=== PATIENT | female | born 1940 | race Caucasian/White ===

== ENCOUNTER 2017-09-07 08:20 | Outpatient (CLI) | payer MEDICARE | END 2017-09-07 08:21 | disposition home or self-care (01) | LOC: BICMRI 08:20 | PROVIDERS: ATTEND Orthopaedic Surgery Hand Surgery | DX: M54.12 Radiculopathy, cervical region (principal); G95.89 Other specified diseases of spinal cord; M43.12 Spondylolisthesis, cervical region; M43.8X2 Other specified deforming dorsopathies, cervical region; Z87.39 Personal history of other diseases of the musculoskeletal system and connective tissue | CPT/HCPCS: 36415; 72141; 83520; 85025; 85652; 86038; 86200; 86225; 86618 ==

== ENCOUNTER 2018-04-30 08:50 | Outpatient (CLI) | payer MEDICARE | END 2018-04-30 08:51 | disposition home or self-care (01) | LOC: BICMAMMO 08:50 | PROVIDERS: ATTEND Nurse Practitioner Family | DX: Z12.31 Encounter for screening mammogram for malignant neoplasm of breast (principal) | CPT/HCPCS: 77063; 77067 ==

== ENCOUNTER 2018-06-28 09:52 | Outpatient (CLI) | payer MEDICARE ==
--- NOTE | 2018-06-28 11:31 | RAD ---
FOUR VIEWS LEFT KNEE: History: Left knee pain for weeks. FINDINGS: Four views of the left knee shows no evidence of acute fracture or dislocation. Moderate tricompartme ntal joint space narrowing and osteophyte formation is seen, greatest in the medial femoral tibial co mpartment. No knee effusion is seen. IMPRESSION: Moderate left knee osteoarthritis without acute osseous abnormality. POS: [facility]
== END 2018-06-28 09:53 | disposition home or self-care (01) ==
LOC: SCSRAD 09:52
PROVIDERS: ATTEND Nurse Practitioner Family
DX: M25.562 Pain in left knee (principal); M17.12 Unilateral primary osteoarthritis, left knee

== ENCOUNTER 2018-07-16 10:57 | Outpatient (CLI) | payer MEDICARE ==
--- NOTE | 2018-07-16 14:24 | RAD ---
LUMBAR SPINE TWO VIEWS: HISTORY: Low back pain with left leg radiculopathy. FINDINGS: There is very severe leftward convex scoliotic curvature at the thoracolumbar junction, so that after numbering, cannot competently performed. No vertebral compression is apparent, with the curvature a nd overall appearance on the frontal view stable, compared to the abdomen radiograph from 01/26/2015. Osteophytosis of the lower facets. Calcification over the arterial structures. IMPRESSION: 1. Severe leftward convex scoliotic curvature of the thoracolumbar junction and other findings are s table, compared to the 2015 examination. Degenerative changes are present. No acute osseous abnorma lities reliably demonstrated. 2. Atherosclerosis. POS: [facility]
== END 2018-07-16 10:58 | disposition home or self-care (01) ==
LOC: SCSRAD 10:57
PROVIDERS: ATTEND Nurse Practitioner Family
DX: M51.16 Intervertebral disc disorders with radiculopathy, lumbar region (principal); M41.9 Scoliosis, unspecified; M43.9 Deforming dorsopathy, unspecified; I70.0 Atherosclerosis of aorta
CPT/HCPCS: 72100

== ENCOUNTER 2019-05-01 10:07 | Outpatient (CLI) | payer MEDICARE ==
--- NOTE | 2019-05-01 11:20 | MMO ---
Bilateral MAMMO Bilat Screen [facility]. CLINICAL HISTORY: Patient is 78 years old and is seen for screening. The patient has no family history of breast cancer. The patient has no personal history of cancer. VIEWS: The views performed were: bilateral craniocaudal with tomosynthesis and bilateral mediolateral oblique with tomosynthesis. FILMS COMPARED: The present examination has been compared to prior imaging studies performed at [facility] on 03/22/2016, 04/28/2017 and 04/30/2018. This study has been interpreted with the assistance of computer-aided detection. MAMMOGRAM FINDINGS: The breasts are heterogeneously dense, which could obscure a lesion on mammography. There are no suspicious masses, calcifications or areas of architectural distortion. There are benign appearing calcifications in both breasts. There are no suspicious masses, suspicious calcifications, or new areas of architectural distortion. IMPRESSION: THERE IS NO MAMMOGRAPHIC EVIDENCE OF MALIGNANCY. A ROUTINE FOLLOW-UP MAMMOGRAM IN 1 YEAR IS RECOMMENDED. THE RESULTS OF THIS EXAM WERE SENT TO THE PATIENT. ACR BI-RADS Category 2 - Benign finding MAMMOGRAPHY NOTE: 1. A negative mammogram report should not delay a biopsy if a dominant of clinically suspicious mass is present. 2. Approximately 10% to 15% of breast cancers are not detected by mammography. 3. Adenosis and dense breasts may obscure an underlying neoplasm. Reported by: ROSANNE DOYLE MD Electonically Signed: [id number]
== END 2019-05-01 10:08 | disposition home or self-care (01) ==
LOC: BICMAMMO 10:07
PROVIDERS: ATTEND Family Medicine
DX: Z12.31 Encounter for screening mammogram for malignant neoplasm of breast (principal)
CPT/HCPCS: 77063; 77067

== ENCOUNTER 2020-05-07 10:01 | Outpatient (CLI) | payer MEDICARE, OTHER ==
--- NOTE | 2020-05-07 10:34 | MMO ---
Bilateral MAMMO Bilat Screen [facility]. CLINICAL HISTORY: Patient is 79 years old and is seen for screening. The patient has no family history of breast cancer. The patient has no personal history of cancer. VIEWS: The views performed were: bilateral craniocaudal with tomosynthesis; bilateral mediolateral oblique with tomosynthesis; and bilateral exaggerated craniocaudal. FILMS COMPARED: The present examination has been compared to prior imaging studies performed at [facility] on 03/22/2016, 04/28/2017, 04/30/2018 and 05/01/2019. This study has been interpreted with the assistance of computer-aided detection. MAMMOGRAM FINDINGS: The breasts are heterogeneously dense, which could obscure a lesion on mammography. There are stable benign appearing calcifications seen in both breasts. There are also vascular calcifications. There are no suspicious masses, suspicious calcifications, or new areas of architectural distortion. IMPRESSION: THERE IS NO MAMMOGRAPHIC EVIDENCE OF MALIGNANCY. A ROUTINE FOLLOW-UP MAMMOGRAM IN 1 YEAR IS RECOMMENDED. THE RESULTS OF THIS EXAM WERE SENT TO THE PATIENT. ACR BI-RADS Category 2 - Benign finding MAMMOGRAPHY NOTE: 1. A negative mammogram report should not delay a biopsy if a dominant of clinically suspicious mass is present. 2. Approximately 10% to 15% of breast cancers are not detected by mammography. 3. Adenosis and dense breasts may obscure an underlying neoplasm. Reported by: DWIGHT GARNICA MD Electonically Signed: [id number]
--- NOTE | 2020-05-07 14:21 | ULT ---
CAROTID DOPPLER: 05/07/20 Ultrasound and Doppler studies performed on the extracranial carotid arteries. INDICATIONS: Carotid bruit. Brennan scale imaging along with color Doppler and spectral analysis with velocity recordings obtained. Brennan scale images show echogenic plaque and intimal thickening bilaterally. Velocity recordings withi n normal range. Highest right ICA velocity recorded at 99 cm/s systolic. Highest left ICA velocity re corded at 96 cm/s systolic. Vertebral arteries are antegrade. IMPRESSION: 1. Moderate echogenic plaque seen with ultrasound bilaterally. 2. No evidence of hemodynamically significant stenosis by velocity recording. POS: [facility]
== END 2020-05-07 10:02 | disposition home or self-care (01) ==
LOC: BICMAMMO 10:01
PROVIDERS: ATTEND Physician Assistant Medical
DX: Z12.31 Encounter for screening mammogram for malignant neoplasm of breast (principal); R09.89 Other specified symptoms and signs involving the circulatory and respiratory systems; I65.23 Occlusion and stenosis of bilateral carotid arteries
CPT/HCPCS: 77063; 77067; 93880

== ENCOUNTER 2021-08-16 11:23 | Outpatient (CLI) | payer MEDICARE, OTHER | END 2021-08-16 11:24 | disposition home or self-care (01) | LOC: BICRAD 11:23 | PROVIDERS: ATTEND Family Medicine | DX: M54.42 Lumbago with sciatica, left side (principal); M41.55 Other secondary scoliosis, thoracolumbar region; M43.9 Deforming dorsopathy, unspecified; M47.816 Spondylosis without myelopathy or radiculopathy, lumbar region; K44.9 Diaphragmatic hernia without obstruction or gangrene | CPT/HCPCS: 72110 ==

== ENCOUNTER 2021-08-19 09:11 | Outpatient (CLI) | payer MEDICARE, OTHER | END 2021-08-19 09:12 | disposition home or self-care (01) | LOC: BICMAMMO 09:11 | PROVIDERS: ATTEND Family Medicine | DX: M81.8 Other osteoporosis without current pathological fracture (principal); M85.89 Other specified disorders of bone density and structure, multiple sites | CPT/HCPCS: 77080 ==

== ENCOUNTER 2021-11-05 12:05 | Outpatient (CLI) | payer MEDICARE, OTHER | END 2021-11-05 12:06 | disposition home or self-care (01) | LOC: BICRAD 12:05 | PROVIDERS: ATTEND Family Medicine | DX: M41.24 Other idiopathic scoliosis, thoracic region (principal); M47.814 Spondylosis without myelopathy or radiculopathy, thoracic region | CPT/HCPCS: 72072 ==

== ENCOUNTER 2022-10-04 09:52 | Outpatient (CLI) | payer MEDICARE | END 2022-10-04 09:53 | disposition home or self-care (01) | LOC: BICMAMMO 09:52 | PROVIDERS: ATTEND Family Medicine | DX: Z12.31 Encounter for screening mammogram for malignant neoplasm of breast (principal) | CPT/HCPCS: 77063; 77067 ==

== ENCOUNTER 2023-02-12 09:13 | Emergency (ER) | payer MEDICARE ==
[2023-02-12] MEDS ORDERED: Iopamidol-370 76% 500 ML MDV (1 ML CHARGE) ONE (10:07)
[2023-02-12 10:18] LABS: #Monocytes 0.5 thou/uL (0.11-0.59); #Neutrophils 4.7 thou/uL (1.40-6.50); %Basophils 0.5 % (0.0-1.0); %Eosinophils 0.5 % (0.0-10.0); %Lymphocytes 18.8 % (21.0-51.0); %Monocytes 8.2 % (0.0-10.0); %Neutrophils 71.7 % (42.0-75.0); Hematocrit 33.4 % (36.0-47.0); Hemoglobin 10.8 g/dL (12.0-16.0); Mean Corpuscular HGB CONC 32.3 g/dL (32.0-36.0); Mean Corpuscular Hemoglobin 28.6 pg (27.0-31.0); Mean Corpuscular Volume 88.4 fl (78.0-98.0); Mean Platelet Volume 9.1 fL (7.4-10.4); Platelet Count 295 10x3/uL (130-400); RBC Distribution Width 13.9 % (11.5-14.5); Red Blood Cell (RBC) Count 3.78 mill/uL (4.20-5.40); White Blood Cell (WBC) Count 6.6 10x3/uL (4.8-10.8)
[2023-02-12 10:41] LABS: ALT (SGPT) Less than 7 U/L (8-55); AST (SGOT) 15 U/L (5-34); Albumin 4.2 g/dL (3.4-4.8); Alkaline Phosphatase 75 U/L (40-110); Anion Gap 12 mmol/L (10-20); BUN (Urea Nitrogen) 15 mg/dL (9.8-20.1); Bilirubin, Total 0.4 mg/dL (0.2-1.2); Calc. Creatinine Clearance 0 mL/min (70-130); Calcium 9.9 mg/dL (7.8-10.44); Carbon Dioxide 26 mmol/L (23-31); Chloride 94 mmol/L (98-107); Estimated GFR 63; Globulin 3.4 g/dL (2.4-3.5); Glucose 102 mg/dL (83-110); Lipase 27 U/L (8-78); Potassium 5.1 mmol/L (3.5-5.1); Protein, Total 7.6 g/dL (5.8-8.1); Sodium 127 mmol/L (136-145)
== END 2023-02-12 13:26 | disposition home or self-care (01) ==
LOC: ERS 09:13
DX: K57.92 Diverticulitis of intestine, part unspecified, without perforation or abscess without bleeding (principal); K59.00 Constipation, unspecified; K21.9 Gastro-esophageal reflux disease without esophagitis; Z79.82 Long term (current) use of aspirin
CPT/HCPCS: 36415; 74177; 80053; 83690; 85025; Q9967

== ENCOUNTER 2023-11-22 15:01 | Outpatient (CLI) | payer MEDICARE | END 2023-11-22 15:02 | disposition home or self-care (01) | LOC: BICULT 15:01 | PROVIDERS: ATTEND Family Medicine | DX: R09.89 Other specified symptoms and signs involving the circulatory and respiratory systems (principal) | CPT/HCPCS: 93880 ==